=== PATIENT | female | born 1955 | race Caucasian/White ===

== ENCOUNTER 2019-06-20 12:15 | Outpatient (RCR) | payer OTHER, SELFPAY | END 2019-06-22 23:59 | disposition home or self-care (01) | LOC: SPT 12:15 | PROVIDERS: Family Provider Family Medicine; PCP Physician Assistant Medical; Visit Provider Physician Assistant Medical | DX: M65.30 Trigger finger, unspecified finger (principal) | CPT/HCPCS: 97750 ==